=== PATIENT | male | born 1965 | race Caucasian/White ===

== ENCOUNTER 2023-08-06 10:26 | Emergency (ER) | payer OTHER, SELFPAY ==
[2023-08-06] VITALS (10 sets, daily range): BP systolic 129–157; BP diastolic 71–100; PULSE 60–80; RESP 14–18; TEMP 36.3–36.7; O2SAT 97–100
--- NOTE | ~2023-08-06 | CT_ITS ---
EXAMINATION: CT abd pelvis lumbar w con DATE: 08/06/2023 12:44 INDICATION: Left-sided abdominal pain, back pain TECHNIQUE: Computed tomography (CT) of the abdomen and pelvis was performed with 100 CC Omnipaque 350 intravenous contrast. Automated exposure control and iterative reconstruction technique were employe d. Exam dose: 602.89 mGy-cm total exam DLP. COMPARISON: 03/07/2019 right upper quadrant abdominal ultrasound examination 06/21/2005 CT abdomen pelvis FINDINGS: The lung bases are clear of infiltrate or consolidation. Heart size is within normal range. No pericardial or pleural effusion. Small sliding hiatal hernia. The gallbladder is present. No extrahepatic bile duct or pancreatic duct dilatation is detected. There are several pancreatic calcifications consistent with chronic pancreatitis. No hepatic space-occupying mass lesion or intrahepatic bile duct dilatation not significantly changed since prior CT examination of 06/21/2005. Normal morphology of the adrenal glands. The right kidney is absent from the renal fossa. There is a chronic nonenhancing 4-5 cm soft tissue d ensity in the right pelvis at the posterolateral aspect of the urinary bladder and lateral aspect of the prostate gland, not significantly changed since 06/21/2005. Approximately 6.8 mm nonenhancing lesion in the medial mid to upper left kidney, not evident on 2004, likely a small cyst. No other renal space occupying mass lesion is noted. No left renal or uret eral calculus or hydronephrosis. Normal caliber of the abdominal aorta. No intraperitoneal or retroperitoneal or pelvic mass lesion or adenopathy or ascites is noted within the previously mentioned right pelvic chronic soft tissue mass . Minimal colonic diverticulosis. No bowel obstruction, bowel wall thickening, pneumatosis or intraperi toneal free air. The appendix appears normal. Scoliosis and multilevel degenerative disc disease of the lumbar spine, particularly involving L2-3, L3-4, L4-5. IMPRESSION: Small sliding hiatal hernia Chronic pancreatitis Absent right kidney and renal fossa Chronic nonspecific right posterolateral pelvic mass, unchanged since 06/21/2005 Probable small left renal cyst Minimal colonic diverticulosis Reviewed, dictated and finalized at [facility]. Reviewed, dictated and finalized at [facility]. [facility]ILDCARE ATTENDANT
[2023-08-06] MEDS: LACTATED RINGERS 1,000 ML 999 ML IV CONT (11:15)
[2023-08-06] MEDS: KETOROLAC 30 MG/ML VIAL (*BKC) IV PUSH (11:15)
[2023-08-06] MEDS: ONDANSETRON INJ 4 MG/2 ML VIAL IV PUSH (11:16)
[2023-08-06 11:31] LABS: Basophils Percent Auto 0.6 % (0.2-1.2); Eosinophils Percent Auto 0.3 % (0-4.4); Hematocrit 47.7 % (42.0-52.0); Hemoglobin 16.5 g/dL (14.0-18.0); Immature Granulocyte Absolute 0.01 K/mm3 (0.00-0.031); Immature Granulocyte Percent A 0.2 % (0-0.5); Lymphocytes Absolute Auto 0.74 K/mm3 (0.9-3.2); Lymphocytes Percent Auto 11.5 % (18.3-44.2); Mean Corpuscular HGB Conc 34.6 g/dl (32-36); Mean Corpuscular Volume 92.4 fl (80-100); Mean Platelet Volume 9.1 fl (7.4-10.4); Monocytes Absolute Auto 0.3 K/mm3 (0.1-0.6); Monocytes Percent Auto 5.1 % (2.6-8.5); Neutrophils Absolute Auto 5.3 K/mm3 (1.3-6.7); Neutrophils Percent Auto 82.3 % (45.5-73.1); Platelet Count Result 215 k/mm3 (150-375); Red Blood Count 5.16 M/mm3 (4.6-6.20); Red Cell Distribution Width 12.7 % (11.5-14.5); White Blood Count 6.5 K/mm3 (4.5-10.0)
[2023-08-06 11:46] LABS: Appearance Urine Clear (Clear); Bacteria Urine None Seen /hpf; Bilirubin Urine Negative (Negative); Blood Urine Negative (Negative); Color Urine Yellow (Yellow); Glucose Urine UA Negative (Negative); Ketones Urine 1+ mg/dL (Negative); Leukocyte Esterase Ur Negative LEU/UL (Negative); Need Manual Microscopic Reviewed; Nitrate Urine Negative (Negative); Non Pathogenic Casts 0-2; Protein Urine Trace mg/dL (Negative); RBC Urine 0-2 /hpf (0-2); Specific Grav Ur 1.025 (1.001-1.035); Spermatozoa Urine Present; Squamous Epithelial Cell Urine None seen /hpf (Few); WBC Urine 0-5 /hpf
[2023-08-06 11:49] LABS: Add Urine Microscopic? YES
[2023-08-06 12:07] LABS: Alanine Aminotransferase 19 U/L (6-50); Albumin Level 4.8 g/dL (3.5-5.1); Alkaline Phosphatase 55 U/L (38-126); Anion Gap 13 mmol/L (8-16); Aspartate Amino Transferase 25 U/L (17-59); Bilirubin,Total 2.1 mg/dL (0.2-1.3); Blood Urea Nitrogen 16 mg/dL (9-20); Carbon Dioxide 22 mmol/L (22-30); Chloride 103 mmol/L (98-107); Estimated CRCL calculation 92 ml/min; Estimated Glomerular Filt Rate > 60; Glucose 113 mg/dL (65-110); Lipase 65 U/L (23-300); Potassium 3.9 mmol/L (3.4-5.0); Sodium 138 mmol/L (137-145)
--- NOTE | 2023-08-06 12:11 | ED.BACK ---
HPI - Back Pain/Injury General Chief Complaint: Back Pain/Injury Stated Complaint: back pain Time Seen by Provider: 08/06/23 10:34 Source: patient, RN notes reviewed and old records reviewed Mode of arrival: ambulatory Limitations: no limitations History of Present Illness HPI Narrative: This is a 58 year old male with history of chronic back pain, alcoholism who presents for evaluation of back pain. Patient states his back has been having pain for over 1 week so he tried using an inversion table. He states after he used this table on Monday his pain has been worse. He has been using ibuprofen and heating pads without relief. His pain is located mid to left lower back . His pain is worse with walking . He reports having numbness to his feet which is chronic. He denies saddle anesthesia or urinary retention. He also reports left upper abdominal pain and nausea. Related Data Allergies Allergy/AdvReac Type Severity Reaction Status Date / Time No Known Allergies Allergy Mild Verified 08/06/23 10:29 Review of Systems Constitutional: Constitutional: Reports fatigue and Denies weakness Cardiovascular: Cardiovascular: Denies syncope, Denies rapid heart rate, Denies irregular heart rhythm, Denies leg edema and Denies dyspnea Respiratory: Respiratory: Denies chest congestion, Denies hemoptysis, Denies excessive phlegm production and Denies dyspnea Gastrointestinal: Gastrointestinal: Denies abdominal pain, Denies hematochezia, Denies diarrhea, Reports nausea and Denies vomiting Genitourinary: Genitourinary: Denies hematuria, Denies dysuria, Denies penile discharge and Denies testicular pain Musculoskeletal: Musculoskeletal: Reports back pain, Denies joint swelling, Denies loss of height and Denies muscle weakness Neurologic: Denies syncope, Denies focal weakness, Reports numbness and Denies weakness [facility] Past Medical History Medical History 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) Family History Family History Other Carcinoma of colon Diabetes mellitus Social History Social History Smoking packs per day: 1.5 Smoking cigarettes per day: 30.0 Years smoked: 10 Smoking pack-years: 15.00 Smoking status: Former smoker Tobacco type: cigarettes Smokeless tobacco user: chewing tobacco Second hand tobacco smoke exposure: No Alcohol intake: never Substance use: never Substance use type: does not use Lack of Transportation: No Lack of Food: Never True Current Housing: I Have Housing Concerned About Future Housing: No Difficulty Paying Gas/Electric Bills: No Difficulty Paying for Meds: No Currently Unemployed: No Education: Associate Degree Difficulty w/ Childcare or Family Care: No Living arrangements: with family Occupation/Education: occupation Gender identity (if verbalized by the patient): Male Additional gender identity comments: Lives with . Sexual Orientation (if Verbalized by the Patient): Straight or Heterosexual Spiritual care concerns: No Agree to blood products: Yes Exam Const: General: no acute distress and alert Nutritional Appearance: well nourished Orientation/consciousness: patient oriented x3 HENMT: Head: normal to inspection Throat: posterior oropharynx normal and uvula midline Chest: Chest palpation & inspection: normal inspection of the chest Resp: Effort & Inspection: normal respiratory effort Auscultation: clear to auscultation bilaterally Cardio: Rate: regular rate Rhythm: regular rhythm Heart sounds: no murmurs GI: GI Palp: Yes Soft to palpation, Yes Tenderness to palpation present (GI) (LUQ), No Guarding due to palpation present (GI) and No Rigid due to palpation Auscultation: normal bowel sounds : General: Yes no CVA tenderness Back
[2023-08-06] MEDS: diazePAM (*CRX) 5 MG TABLET PO (14:00)
== END 2023-08-06 14:55 | disposition home or self-care (01) ==
PROVIDERS: Emergency Provider General Practice; PCP Family Medicine
DX: M54.50 Low back pain, unspecified (principal); G89.29 Other chronic pain; M41.9 Scoliosis, unspecified; F10.21 Alcohol dependence, in remission; Z87.891 Personal history of nicotine dependence
CPT/HCPCS: 36415; 72132; 74177; 80053; 81001; 83690; 85025; 96361; 96374; 96375; 99284; A9270; J1885; J2405; J7120; Q9967

== ENCOUNTER 2024-09-26 00:35 | Day surgery (SDC) | payer BC, SELFPAY ==
[2024-09-11 16:01] VITALS: BMI 25.0
--- OUTSIDE RECORDS SUMMARY | 2024-09-26 00:37 | XMS_ITS | Clinical Summary ---
Author Organization [facility] Address [address] [place] [id number] Phone Care Team Providers Care Commercial Lender Name Role Phone Taylor Ogden MD Primary Care Provider [phone] Allergies No known active allergies Medications nicotine (NICODERM CQ) 14 mg/24 hr patch Apply 1 Patch to skin as directed every 24 hours. Active Active Problems Problem Noted Date Diagnosed Date Hypotension due to drugs 03/15/2019 Sinus bradycardia 03/15/2019 NING (acute kidney injury) 03/15/2019 Paroxysmal atrial fibrillation 03/15/2019 Other secondary thrombocytopenia 03/15/2019 Anemia, unspecified 03/15/2019 History of seizure 03/15/2019 Alcohol abuse, in remission 03/15/2019 Family History Medical History Relation Name Comments Colon Cancer Father Relation Name Status Comments Father Mother Alive Social History Tobacco Use Types Packs/Day Years Used Date Smoking Tobacco: Former Smokeless Tobacco: Current Alcohol Use Standard Drinks/Week Comments Not Currently 0 (1 standard drink = 0.6 oz pur e alcohol) pint of vodka daily Sex and Gender Information Value Date Recorded Sex Assigned at Not on file Legal Sex Male 3:13 PM CDT Gender Identity Not on file Sexual Orientation Not on file Last Filed Vital Signs Vital Sign Reading Time Taken Comments Blood Pressure 107/62 03/16/2019 3:23 PM CDT Pulse 71 03/16/2019 3:23 PM CDT Temperature 36.9 C (98.4 F) 03/16/2019 3:23 PM CDT Respiratory Rate 16 03/16/2019 3:23 PM CDT Oxygen Saturation 99% 03/16/2019 3:23 PM CDT Inhaled Oxygen Concentration - - Weight 81.6 kg (180 lb) 03/16/2019 3:08 AM CDT Height 188 cm (6' 2 ) 03/15/2019 8:32 PM CDT Body Mass Index 23.11 03/15/2019 8:32 PM CDT Plan of Treatment Health Maintenance Due Date Last Done Comments DTAP/TDAP/TD VACCINES (1 - Tdap) 1985 HEPATITIS B VACCINES (1 of 3 - 19+ 3-dose series) 1985 COLORECTAL SCREENING 2011 Colorectal Cancer Screening 2011 FIT-DNA Q 3 years 2011 FIT/FOBT Q 1 year 2011 Flex Sig/CT Colonography Q 5 years 2011 ZOSTER VACCINE (1 of 2) 2016 INFLUENZA VACCINE (#1) 2024 PNEUMOCOCCAL VACCINE 0-64 YEARS Aged Out No longer eligible based on patient's age to complete this [place] [address] [facility] PPO Advance Directives For more information, please contact: [phone] * Full Code (Latest Code Status on File) Date Activated Date Inactivated Comments 03/15/2019 8:36 PM 03/16/2019 6:40 PM Care Teams Commercial Lender Relationship Specialty Start Date End Date Taylor Ogden MD [address] [place] [address] PCP - General Family Practice 03/15/19
--- OUTSIDE RECORDS SUMMARY | 2024-09-26 00:37 | XMS_ITS | Encounter Summary ---
Author Organization [facility] Care Team Providers Care Cro Name Role Phone Taylor Ogden MD Primary Care Provider [phone] Taylor Ogden MD Primary Care Provider [phone] Taylor Ogden MD Unavailable [phone] Encounter Details Date Type Department Care Team (Latest Contact Info) Description 07/27/2018 Orders Only [facility] Provider, MD Milad[facility] [address] [place] [id number] Social History Tobacco Use Types Packs/Day Years Used Date Smoking Tobacco: Former Alcohol Use Standard Drinks/Week Comments Yes 0 (1 standard drink = 0.6 oz pur e alcohol) Sex and Gender Information Value Date Recorded Sex Assigned at Not on file 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 Historical Provider Final Res ult * PROCEDURE - RESULT (08/06/2018 12:00 AM COIN ROLLING MACHINE OPERATOR) Narrative 08/06/2018 12:00 AM COIN ROLLING MACHINE OPERATOR Ordered by an unspecified provider. us Historical Provider Final Res ult documented in this encounter Visit Diagnoses Not on filedocumented in this encounter Care Teams Cro Relationship Specialty Start Date End Date Taylor Ogden MD PCP - General 12/25/14 03/27/22 Taylor Ogden MD PCP - General Family Medicine 03/28/22 Taylor Odgen MD 03/28/22 documented as of this encounter
--- OUTSIDE RECORDS SUMMARY | 2024-09-26 00:37 | XMS_ITS | Clinical Summary ---
Author Organization [facility] Address [address] [place] [address] Care Team Providers Care Welder Repair Name Role Phone Taylor Ogden MD Primary Care Provider [phone] Taylor Ogden MD Unavailable [phone] Allergies No known active allergies Medications aspirin (ASPIR-81) 81 mg tablet take 1 Tablet by oral route every day 0 0 5 Active garlic 1 mg capsule Rx: Garlic Active magnesium oxide 200 mg magnesium tablet,chewable Rx: Magnesium Active milk thistle 150 mg capsule Rx: Milk Thistle Active potassium 99 mg tablet Rx: Potassium Active fish oil-dha-epa 1,200-144-216 mg capsule Take by mouth Activ e ascorbic acid (VITAMIN C) 1,000 mg tablet Take 1,000 mg by mouth daily Active selenium 200 mcg tablet Take by mouth Activ e thiamine (VITAMIN B-1) 100 mg tablet Take 100 mg by mouth daily Active cyanocobalamin, vitamin B-12, 3,000 mcg tablet, sublingual Place under the tongue Active cholecalciferol , vitamin D3, 5,000 unit/mL drops Take by mouth Active turmeric root extract 500 mg capsule Take by mouth Active docosahexaenoic acid-epa 120-180 mg capsule Take 1,000 mg by mouth 2 (two) times a day Active magnesium hydroxide (MILK OF MAGNESIA) suspension 400 mg/5 mL Take by mouth daily as needed Active potassium chloride ER (KLOR-CON) 10 mEq CR tablet Take 1 tablet by mouth daily 9 Active Active Problems Problem Noted Date Diagnosed Date Hereditary and idiopathic neuropathy 04/26/2019 Paroxysmal atrial fibrillation (CMS/HCC) 017 Medical History Medical History Date Comments Hx Other Medical ear drum surg Hx Other Medical tonsillectomy Family History Medical History Relation Name Comments Other Brother 2 Alive and well; Colon cancer Father Cancer, colon; Other Mother Alive and well; Colon cancer Other 1 Family history of Cancer, colon; Other Other 2 Family history of sinusitis; Other Sister 2 Alive and well; Relation Name Status Comments Brother 1 Alive Brother 2 Father Mother Alive Other 1 Other 2 Sister 1 Alive Sister 2 Social History Tobacco Use Types Packs/Day Years Used Date Smoking Tobacco: Former Smokeless Tobacco: Current Tobacco Cessation:Ready to Q uit: Not Asked; Counseling Given: Not Answered Alcohol Use Standard Drinks/Week Comments Not Currently 0 (1 standard drink = 0.6 oz pure alcohol) Previously drank Pint or more hard alcohol daily, Sex and Gender Information Value Date Recorded Sex Assigned at Not on file 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 Gender Identity Not on file Sexual Orientation Not on file Obstetrics History Last Filed Vital Signs Vital Sign Reading Time Taken Comments Blood Pressure 141/95 04/12/2022 3:40 PM CDT Pulse 66 04/12/2022 3:40 PM CDT Temperature 36.8 C (98.2 F) 02/17/2019 9:45 AM CDT Respiratory Rate 12 03/16/2017 9:59 AM CDT Oxygen Saturation 99% 02/17/2019 9:45 AM CDT Inhaled Oxygen Concentration - - Weight 86.2 kg (190 lb) 04/12/2022 3:40 PM CDT Height 185.4 cm (6' 1 ) 04/26/2019 1:54 PM CDT Body Mass Index 25.07 04/26/2019 1:54 PM CDT Plan of Treatment Health Maintenance Due Date Last Done Comments Colon Cancer Screening-Colonoscopy 1966 Depression Screening 1966 Hepatitis C Screening 1966 Prostate Cancer Screening-PSA 1966 Hepatitis B Screening 1984 Regular Well Visit/Exam 18-64 1984 Zoster Vaccine (1 of 2) 2016 Influenza Vaccine (#1) 2024 DTaP/Tdap/Td Vaccine (2 - Tdap) 02/17/2029 9 Pneumococcal vaccine <65 Aged Out No longer eligible based on patient's age to complete this topic Insurance [employer] [facility] Address: [address] [address] [place] [address] [facility] Address: [address] [address] Care Teams Welder Repair Relationship Specialty Start Date End Date Taylor Ogden MD PCP - General Family Medicine 03/28/22 Taylor Ogden MD 03/28/22
--- OUTSIDE RECORDS SUMMARY | 2024-09-26 00:37 | XMS_ITS | Referral Summary ---
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
--- OUTSIDE RECORDS SUMMARY | 2024-09-26 00:37 | XMS_ITS | Clinical Summary ---
Author Organization [facility] Address [address] [place] [address] Care Team Providers Care Manager Secondary Name Role Phone Unavailable Primary Care Provider Unavailabl e Allergies No known active allergies Medications acetaminophen 325 MG tablet Take 650 mg by mouth every 6 (six) hours as needed for Pain. Active doxycycline hyclate 100 MG tablet Take 100 mg by mouth 2 (two) times daily. Active bisacodyl [address] 10 mg rectally daily as needed for Constipation. Active fish oil 1000 MG Cap capsule Take 1,000 mg by mouth 2 (two) times daily. Active saline enema 7-19 GM/118ML Enema enema Place 1 enema rectally daily as needed for Constipation. Active Garlic Oil 1000 MG Cap Active levETIRAcetam ER 500 MG 24 hr tablet Take 500 mg by mouth daily. Active lorazepam 1 MG tablet Take 1 mg by mouth every 6 (six) hours as needed for Anxiety. Active magnesium oxide 400 MG tablet Take 400 mg by mouth daily. Active magnesium hydroxide 400 MG/5ML suspension Take by mouth daily as needed for Constipation. Active multi vitamin/minerals tablet Take 1 tablet by mouth daily. Active nicotine 14 MG/24HR Place 1 patch onto the skin daily. Active thiamine 100 MG Tab Take 100 mg by mouth daily. Active TURMERIC OR Active vitamin E 400 UNIT capsule Take 400 Units by mouth daily. Active POTASSIUM CHLORIDE CR 10 MEQ CR capsuleIndication s:Hypokalemia TAKE 1 CAPSULE BY MOUTH EVERY DAY 30 capsule 9 Active CLONIDINE 0.1 MG tabletIndications :Alcohol dependence with withdrawal with complication (CMS/HCC HHS/HCC) TAKE 1 TABLET (0.1 MG TOTAL) BY MOUTH 2 (TWO) TIMES DAILY. 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 Alcohol dependence with withdrawal ([facility]) 02/26/2019 Hypomagnesemia 02/26/2019 Hypokalemia 02/26/2019 Atypical anxiety disorder 02/26/2019 Hearing loss in right ear 02/26/2019 Essential hypertension, benign 02/26/2019 Non-seasonal allergic rhinitis 02/26/2019 Chronic maxillary sinusitis 02/26/2019 Constipation 02/26/2019 Low back pain 02/26/2019 Muscle weakness (generalized) 02/26/2019 Tremor 02/26/2019 Difficulty walking 02/26/2019 Ataxia 02/26/2019 Repeated falls 02/26/2019 Altered mental status 02/26/2019 Visual hallucination 02/26/2019 Speech disturbance 02/26/2019 Fatigue 02/26/2019 Convulsion ([facility]) 02/26/2019 Tobacco use 02/26/2019 Auditory hallucination 02/26/2019 Paroxysmal atrial fibrillation ([facility]) 03/16/2017 Social History Tobacco Use Types Packs/Day Years Used Date Smoking Tobacco: Never Assessed Sex and Gender Information Value Date Recorded Sex Assigned at Not on file Legal Sex Male 5:56 PM CDT Gender Identity Not on file Sexual Orientation Not on file Last Filed Vital Signs Vital Sign Reading Time Taken Comments Blood Pressure 171/101 02/26/2019 1:06 PM CDT Pulse 86 02/26/2019 1:06 PM CDT Temperature 36.1 C (97 F) 02/26/2019 1:06 PM CDT Respiratory Rate 16 02/26/2019 1:06 PM CDT Oxygen Saturation - - Inhaled Oxygen Concentration - - Weight 94.3 kg (208 lb) 02/26/2019 1:06 PM CDT Height - - Body Mass Index - - Plan of Treatment Health Maintenance Due Date Last Done Comments Colorectal Cancer Screening Colonoscopy (10 Years) 1966 Annual Physical 1969 Hepatitis C 1984 DTaP, Tdap and Td Vaccines ( 1 - Tdap) 1985 Hepatitis B Vaccines (1 of 3 - 19+ 3-dose series) 1985 Zoster Vaccines (1 of 2) 2016 COVID-19 Vaccine (2023-2 5 season) 2024 Influenza Adult (#1) 2024 Meningococcal B Vaccine Aged Out No l onger eligible based on patient's age to complete this topic Meningococcal Vaccine Aged Out No solitario wilner eligible based on patient's age to complete this topic Pneumococcal Vaccine: Pediat rics (0 to 5 Years) and At-Risk Patients (6 to 64 Years) Aged Out No longer eligible b ased on patient's age to complete this topic RSV Immunizations Under 20 Months Aged Out No longer eligible based on patient's age to complete this [place] [address] [facility]
--- NOTE | 2024-09-26 06:21 | WPDANESEPPF ---
Anes - Initial Pre Proc Eval Procedure: Operation Date: 09/26/24 07:30 Proposed Procedures p Screening Colonoscopy - Rubio Mabry MD Date/Time: 09/26/24 06:21 Surgeon: Rubio Mabry MD Pre Op Diagnosis: family hx malignant neoplasm dig organs Patient Data Age: 59 Gender: M Height: 1.88 m Weight: 88.6 kg Allergies Allergy/AdvReac Type Severity Reaction Status Date / Time No Known Allergies Allergy Mild Verified 09/26/24 06:18 Home Medications ?Medication ?Instructions ?Recorded ?Confirmed ?Type folic acid 1 mg tablet 1 mg PO DAILY #30 tabs 07/18/22 09/26/24 Rx garlic 500 mg capsule 500 mg PO DAILY #30 caps 07/18/22 09/11/24 Rx omega 3-yjn-qgo-fish oil 100 1 cap PO QAM #30 caps 07/18/22 09/26/24 Rx mg-160 mg-1,000 mg capsule (Fish Oil) selenium 50 mcg tablet 50 mcg PO DAILY #30 tabs 07/18/22 09/26/24 Rx thiamine HCl (vitamin B1) 100 mg 100 mg PO DAILY #30 tabs 07/18/22 09/26/24 Rx tablet vitamin B complex 1 cap PO DAILY #30 caps 07/18/22 09/26/24 Rx aspirin 81 mg capsule 81 mg PO DAILY 09/11/24 09/26/24 History bilberry 60 mg capsule 60 mg PO DAILY 09/11/24 09/26/24 History biotin 5,000 mcg chewable tablet 5,000 mcg PO DAILY 09/11/24 09/26/24 History cholecalciferol (vitamin D3) 25 4,000 unit PO DAILY 09/11/24 09/26/24 History mcg (1,000 unit) tablet (Vitamin D3) magnesium 500 mg tablet 500 mg PO DAILY 09/11/24 09/26/24 History niacin 500 mg capsule,extended 500 mg PO DAILY 09/11/24 09/11/24 History release potassium 99 mg tablet 99 mg PO DAILY 09/11/24 09/26/24 History vitamin A 7,500 mcg (25,000 unit) 7,500 mcg PO DAILY 09/11/24 09/26/24 History capsule zinc 50 mg capsule 50 mg PO DAILY 09/11/24 09/26/24 History Patient hx anesthesia problems: none Family hx anesthesia problems: none Results Review: All pre-operative results and documents have been reviewed as part of the pre-operative evaluation. 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) Family History Family History Other Carcinoma of colon Diabetes mellitus Social History Social History Smoking packs per day: 1.5 Smoking cigarettes per day: 30.0 Years smoked: 10 Smoking pack-years: 15.00 Smoking status: Former smoker Tobacco type: cigarettes Smokeless tobacco user: chewing tobacco Second hand tobacco smoke exposure: No Alcohol intake: former Substance use: never Substance use type: does not use Lack of Transportation: No Lack of Food: Never True Current Housing: I Have Housing Concerned About Future Housing: No Difficulty Paying Gas/Electric Bills: No Difficulty Paying for Meds: No Currently Unemployed: No Education: Associate Degree Difficulty w/ Childcare or Family Care: No Living arrangements: with family Occupation/Education: occupation Gender identity (if verbalized by the patient): Male Additional gender identity comments: Lives with . Sexual Orientation (if Verbalized by the Patient): Straight or Heterosexual Spiritual care concerns: No Agree to blood products: Yes Anes - Eval Final PreProcedure Day of Procedure 09/26/24 06:21 Patient weight: normal Heart: regular rate and rhythm Lungs: clear to auscultation Airway: Mallampati scale class II Neurological: alert and oriented Last oral intake: >/= 8 hours ASA classification: II Emergent: no Anesthetic plan: proceed Anesthesia type and monitoring: general GIVS and standard monitoring Results Review: All pre-operative results and documents have been reviewed as part of the pre-operative evaluation. Informed Consent: The patient's anesthetic plan and its attendant risks and benefits were discussed with the patient/family/POA. Questions were solicited and answers provided to the satisfaction of the patient/family/POA.
[2024-09-26 06:22] VITALS: BP 127/87; PULSE 88; RESP 16; TEMP 35.8; O2SAT 100
[2024-09-26] MEDS: LACTATED RINGERS 1,000 ML 150 ML IV CONT (06:32)
--- NOTE | 2024-09-26 07:25 | PM.HPGS ---
History of Present Illness History of Present Illness Consent: Risks, benefits, and alternatives have been discussed and questions answered. Patient agrees to proceed with procedure. 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) Family History Family History Other Carcinoma of colon Diabetes mellitus Social History Social History Smoking packs per day: 1.5 Smoking cigarettes per day: 30.0 Years smoked: 10 Smoking pack-years: 15.00 Smoking status: Former smoker Tobacco type: cigarettes Smokeless tobacco user: chewing tobacco Second hand tobacco smoke exposure: No Alcohol intake: former Substance use: never Substance use type: does not use Lack of Transportation: No Lack of Food: Never True Current Housing: I Have Housing Concerned About Future Housing: No Difficulty Paying Gas/Electric Bills: No Difficulty Paying for Meds: No Currently Unemployed: No Education: Associate Degree Difficulty w/ Childcare or Family Care: No Living arrangements: with family Occupation/Education: occupation Gender identity (if verbalized by the patient): Male Additional gender identity comments: Lives with . Sexual Orientation (if Verbalized by the Patient): Straight or Heterosexual Spiritual care concerns: No Agree to blood products: Yes Meds Home Medications and Allergies Home Medications ?Medication ?Instructions ?Recorded ?Confirmed ?Type folic acid 1 mg tablet 1 mg PO DAILY #30 tabs 07/18/22 09/26/24 Rx garlic 500 mg capsule 500 mg PO DAILY #30 caps 07/18/22 09/11/24 Rx omega 8-ohm-wok-fish oil 100 1 cap PO QAM #30 caps 07/18/22 09/26/24 Rx mg-160 mg-1,000 mg capsule (Fish Oil) selenium 50 mcg tablet 50 mcg PO DAILY #30 tabs 07/18/22 09/26/24 Rx thiamine HCl (vitamin B1) 100 mg 100 mg PO DAILY #30 tabs 07/18/22 09/26/24 Rx tablet vitamin B complex 1 cap PO DAILY #30 caps 07/18/22 09/26/24 Rx aspirin 81 mg capsule 81 mg PO DAILY 09/11/24 09/26/24 History bilberry 60 mg capsule 60 mg PO DAILY 09/11/24 09/26/24 History biotin 5,000 mcg chewable tablet 5,000 mcg PO DAILY 09/11/24 09/26/24 History cholecalciferol (vitamin D3) 25 4,000 unit PO DAILY 09/11/24 09/26/24 History mcg (1,000 unit) tablet (Vitamin D3) magnesium 500 mg tablet 500 mg PO DAILY 09/11/24 09/26/24 History niacin 500 mg capsule,extended 500 mg PO DAILY 09/11/24 09/11/24 History release potassium 99 mg tablet 99 mg PO DAILY 09/11/24 09/26/24 History vitamin A 7,500 mcg (25,000 unit) 7,500 mcg PO DAILY 09/11/24 09/26/24 History capsule zinc 50 mg capsule 50 mg PO DAILY 09/11/24 09/26/24 History Allergies Allergy/AdvReac Type Severity Reaction Status Date / Time No Known Allergies Allergy Mild Verified 09/26/24 06:18 Vital Signs Vital Signs - 24 hr 09/26/24 06:22 Temperature 96.4 F L Pulse Rate 88 Respiratory Rate 16 Blood Pressure 127/87 Pulse Oximetry 100 Oxygen Delivery Room Air Exam Const: General: comfortable and no acute distress HENMT: Face/Nose/Sinus: Normal nares present Eyes: General: appearance normal, both eyes and all related structures Neck: Neck: no JVD Resp: Auscultation: clear to auscultation bilaterally Cardio: Rate: regular rate Rhythm: regular rhythm GI: Inspection: non-distended GI Palp: Yes Soft to palpation Skin: General skin exam: normal color Neuro: General: gait normal Speech: normal speech Extrem: General: normal to inspection Psych: Mental Status: mental status grossly normal Assessment and Plan Assessment and plan (1) Family history of colon cancer in father: Code(s): Z80.0 - Family history of malignant neoplasm of digestive organs Status: Acute Assessment and Plan: colonoscopy
[2024-09-26 07:48] VITALS: BP 121/83; PULSE 76; RESP 13; O2SAT 98
[2024-09-26 07:58] VITALS: BP 115/78; PULSE 61; RESP 19; O2SAT 100
[2024-09-26 08:08] VITALS: BP 115/68; PULSE 57; RESP 19; O2SAT 100
== END 2024-09-26 08:21 | disposition home or self-care (01) ==
PROVIDERS: PCP Family Medicine; Visit Provider Internal Medicine Gastroenterology
PROC: 0DJD8ZZ Inspection of Lower Intestinal Tract, Via Natural or Artificial Opening Endoscopic (ICD-10-PCS; CPT 45378; principal; 2024-09-26 07:30)
DX: Z12.11 Encounter for screening for malignant neoplasm of colon (principal); K64.8 Other hemorrhoids; F17.220 Nicotine dependence, chewing tobacco, uncomplicated; F10.96 Alcohol use, unspecified with alcohol-induced persisting amnestic disorder; Z80.0 Family history of malignant neoplasm of digestive organs; Z79.82 Long term (current) use of aspirin
CPT/HCPCS: 45378; J2003; J2704; J7120

== ENCOUNTER 2025-06-06 09:44 | Outpatient (CLI) | payer BC, SELFPAY ==
--- NOTE | ~2025-06-06 | US_ITS ---
ULTRASOUND ABDOMEN LIMITED (RIGHT UPPER QUADRANT) Clinical History: K76.0 - Fatty (change of) liver, not elsewhere classified Comparison: None Technique: Right upper quadrant sonography Findings: Liver: Normal size. Echogenic. No intrahepatic biliary ductal dilatation. Normal hepatopedal flow main portal vein. Common Duct: Normal caliber. 3 mm. Gallbladder: No stones. No wall thickening. No pericholecystic fluid. 5 mm polyp; no surveillance indicated given small size. Small stone. Pancreas: Largely obscured by bowel gas. Right kidney: Not seen, consistent with history of removal. Retrohepatic IVC: Unremarkable. IMPRESSION: 1. Hepatic steatosis and/or hepatocellular disease. 2. No acute abnormality. Reviewed, dictated and finalized at location R.
== END 2025-06-06 09:45 | disposition home or self-care (01) ==
PROVIDERS: PCP Student in an Organized Health Care Education/Training Program; Visit Provider Family Medicine
DX: K76.0 Fatty (change of) liver, not elsewhere classified (principal)
CPT/HCPCS: 76705